=== PATIENT | female | born 1935 | race Caucasian/White ===

== ENCOUNTER 2019-02-21 09:53 | Emergency (ER) | payer OTHER ==
[~2019-02-21] VITALS: Ht 152.4 cm; Wt 65.8 kg
[2019-02-21] MEDS ORDERED: IBU600 MG PO (13:27)
[2019-02-21] MEDS ORDERED: OSEL75CA PO (13:27)
[2019-02-21] MEDS ORDERED: SYMBICORT 80/10.2 GM IH (13:27)
[2019-02-21] MEDS ORDERED: MUCINEX DM ER1 EAC1 PO (13:27)
== END 2019-02-21 13:55 ==
LOC: ER 09:53
DX: J09.X2 Influenza due to identified novel influenza A virus with other respiratory manifestations (principal)